=== PATIENT | female | born 1965 | race African-American/Black ===

== ENCOUNTER 2023-12-10 10:06 | Emergency (ER) | payer OTHER ==
[~2023-12-10] VITALS: Ht 157.5 cm; Wt 59.0 kg
[2023-12-10] MEDS ORDERED: AMLODIPINE-OLM1 EAC2 PO (10:32)
[2023-12-10] MEDS ORDERED: KETOROLAC TROMETHAMINE 60 MG VIAL IM STA (11:13)
== END 2023-12-10 12:17 | disposition home or self-care (01) ==
LOC: ER 10:07
DX: M19.172 Post-traumatic osteoarthritis, left ankle and foot (principal); I10 Essential (primary) hypertension

== ENCOUNTER 2024-01-27 09:29 | Emergency (ER) | payer OTHER ==
[~2024-01-27] VITALS: Ht 160 cm; Wt 69.4 kg
[~2024-01-27 09:29] MED LIST: AMLODIPINE-OLM1 EAC2 PO
[2024-01-27] MEDS ORDERED: KETOROLAC TROMETHAMINE 60 MG VIAL IM ONE ×2 (11:10→11:15)
[2024-01-27] MEDS ORDERED: ORPHENADRINE CITRATE 30 MG/ML AMPUL ONE (11:10)
[2024-01-27] MEDS ORDERED: ORPHENADRINE CITRATE 30 MG/ML AMPUL IM ONE (11:15)
== END 2024-01-27 11:22 | disposition home or self-care (01) ==
LOC: ER 09:30
DX: M25.562 Pain in left knee (principal); M17.12 Unilateral primary osteoarthritis, left knee
CPT/HCPCS: 96372; 99282; J1885; J2360

== ENCOUNTER 2024-02-17 15:22 | Emergency (ER) | payer OTHER ==
[~2024-02-17] VITALS: Ht 157.5 cm; Wt 60.8 kg
[2024-02-17 15:32] VITALS: BP 106/73; O2SAT 95
[2024-02-17 18:24] LABS: HEMATOCRIT 42.3 % (36.0-45.00); HEMOGLOBIN 14.5 g/dL (12.0-15.00); MEAN CELL VOLUME 90.5 fL (80.00-100.00); MEAN CORPUSCULAR HGB CONC 34.3 g/dl (32.0-36.0); PLATELET COUNT 283 K/uL (150-450); RED BLOOD COUNT 4.67 M/uL (4.00-6.00); RED CELL DISTRIBUTION WIDTH 12.8 % (11.5-14.5)
== END 2024-02-17 20:17 | disposition home or self-care (01) ==
LOC: ER 15:24
PROVIDERS: Preventive Medicine Public Health & General Preventive Medicine
DX: J06.9 Acute upper respiratory infection, unspecified (principal); I10 Essential (primary) hypertension

== ENCOUNTER 2024-06-02 09:00 | Emergency (ER) | payer OTHER ==
[~2024-06-02] VITALS: Ht 157.5 cm; Wt 61.2 kg
[2024-06-02 09:17] VITALS: BP 125/84; O2SAT 99
[2024-06-02] MEDS ORDERED: KETOROLAC TROMETHAMINE 30 MG VIAL IM STA (09:31)
[2024-06-02] MEDS ORDERED: KETOROLAC TROMETHAMINE 60 MG VIAL IM ONE (09:36)
== END 2024-06-02 10:58 | disposition home or self-care (01) ==
LOC: ER 09:02
DX: S80.02XA Contusion of left knee, initial encounter (principal); S30.0XXA Contusion of lower back and pelvis, initial encounter; W19.XXXA Unspecified fall, initial encounter; Y93.89 Activity, other specified; Y92.018 Other place in single-family (private) house as the place of occurrence of the external cause; Y99.9 Unspecified external cause status; J06.9 Acute upper respiratory infection, unspecified

== ENCOUNTER 2024-07-18 13:05 | Outpatient (CLI) | payer OTHER | END 2024-07-18 13:12 | disposition home or self-care (01) | LOC: MRI 13:05 | PROVIDERS: ATTEND Orthopaedic Surgery | DX: M48.061 Spinal stenosis, lumbar region without neurogenic claudication (principal) | CPT/HCPCS: 72148 ==

== ENCOUNTER → 2024-10-23 09:48 | Outpatient (CLI) | payer OTHER | END | disposition home or self-care (01) | LOC: RAD 09:48 | PROVIDERS: ATTEND Specialist | DX: S32.008S Other fracture of unspecified lumbar vertebra, sequela (principal); S20 Superficial injury of thorax ==